=== PATIENT | male | born 1960 | race Caucasian/White ===

== ENCOUNTER 2023-10-31 14:35 | Inpatient (IN) | payer OTHER ==
[~2023-10-31] VITALS: Ht 167.6 cm; Wt 101.2 kg
[~2023-10-31 14:35] MED LIST: VICODIN 5-5001 EACH PO
[2023-10-31] MEDS ORDERED: SODIUM CHLORIDE 0.9% 1,000 ML IV ONE (14:45)
[2023-10-31] MEDS ORDERED: ondansetron HCL 4 MG/2 ML VIAL IV ONE ×2 (14:45→15:45)
[2023-10-31] MEDS ORDERED: HYDROmorphone HCL 1 MG/ML SYR IV PRN ×2 (14:45→18:00)
[2023-10-31] MEDS ORDERED: ADULT LOW DOSE81 MG PO (14:46)
[2023-10-31] MEDS ORDERED: LIPITOR10 MG PO (14:47)
[2023-10-31] MEDS ORDERED: COREG6.25 MG PO (14:47)
[2023-10-31 14:48] LABS: BILIRUBIN, URINE NEGATIVE (negative); BLOOD/HGB, URINE TRACE-I (Negative); KETONE, URINE TRACE (Negative); LEUK ESTERASE, URINE NEGATIVE (negative); NITRITE, URINE NEGATIVE (negative); PH, URINE 6.5 (5-7)
[2023-10-31] MEDS ORDERED: METFORMIN HCL500 M1 PO (14:48)
[2023-10-31 14:58] LABS: HEMOGLOBIN 14.8 g/dL (12.0-18.0)
[2023-10-31 14:59] LABS: BACTERIA, URINE NONE SEEN /hpf (negative); CASTS, URINE NONE SEEN \\lpf; COLLECTION TYPE, URINE CLEAN CATCH; CRYSTALS, URINE NONE SEEN (0-1+); EPITHELIAL CELLS, URINE 0 /lpf (0-1+); RED BLOOD CELLS, URINE 0-1 /hpf (0-5); REFLEX CULTURE, URINE No (No); WHITE BLOOD CELLS, URINE 0-1 /HPF (0-5)
[2023-10-31 15:00] LABS: BASOPHILS 0.5 % (0-2); EOSINOPHILS 0.2 % (0-6); HEMATOCRIT 45.6 % (35.0-50.0); LYMPHOCYTES 13.5 % (24-44); MCH 27.1 (27-36); MCHC 32.5 g/dl (30-36); MCV 83.3 fl (81-99); MONOCYTES 6.7 % (0-12); NEUTROPHILS 79.1 % (39-80); PLATELET COUNT 164 K/uL (140-440); RBC 5.47 M/ul (4.3-5.7); RDW 14.2 (10.5-15.0)
[2023-10-31 15:11] LABS: ALBUMIN 3.8 g/dL (3.4-5.0); ALBUMIN/GLOBULIN RATIO 0.93 (1.1-2.4); BUN/CREATININE RATIO 11.95 (6.0-28.6); CALCIUM 9.1 mg/dL (8.5-10.1); CREATININE, SERUM 0.92 mg/dL (0.70-1.30); PROTEIN, TOTAL 7.9 g/dL (6.4-8.2)
[2023-10-31] MEDS ORDERED: droPERidol 5 MG/2 ML VIAL IV ONE (16:15)
[2023-10-31] MEDS ORDERED: ENOXAPARIN SODIUM 40 MG/0.4 ML SYR SUB-Q SCH (17:34)
[2023-10-31] MEDS ORDERED: PANTOPRAZOLE SODIUM 40 MG/10 ML VIAL IV SCH (17:35)
--- NOTE | 2023-10-31 17:48 | NUR ---
PT TO FLOOR FROM ER VIA STRETCHER. REPORT RECEIVED FROM ER NURSE. PT AWAKE AND ALERT. PT HAS WRIST AND ANKLE RESTRAINTS ON WITH 2 GUARDS AT BEDSIDE. PT PLEASANT AND COOPERATIVE.
[2023-10-31] MEDS ORDERED: ondansetron HCL 4 MG/2 ML VIAL IV PRN (18:00)
[2023-10-31] MEDS ORDERED: GLUCAGON,HUMAN RECOMBINANT 1 MG/ML VIAL SUB-Q PRN (18:00)
[2023-10-31] MEDS ORDERED: ACETAMINOPHEN 325 MG TAB PO PRN (18:00)
[2023-10-31] MEDS ORDERED: DEXTROSE 5% 1,000 ML IV PRN (18:00)
[2023-10-31] MEDS ORDERED: DEXTROSE 50% 50 ML SYR IV PRN ×2 (18:00)
[2023-10-31] MEDS ORDERED: SODIUM CHLORIDE 0.9% 1,000 ML IV SCH (18:00)
[2023-10-31] MEDS ORDERED: IBLOOD GLUCOSE TEST STRIP 1 EA TEST XX PRN (18:00)
[2023-10-31] MEDS ORDERED: PROCHLORPERAZINE EDISYLATE 10 MG/2 ML VIAL IV PRN (18:00)
[2023-10-31 18:15] VITALS: BP 123/65
--- NOTE | 2023-10-31 18:49 | NUR ---
PT RESTING IN BED, RESPIRATIONS EVEN AND UNLABORED. PT STATES PAIN IS 2/10 AND THAT HE IS COMFORTABLE AT THIS TIME. STATES HE IS ONLY SLIGHTLY NAUSEOUS AND THAT IT IS TOLERABLE AT THIS TIME. CALL LIGHT WITHIN REACH.
--- NOTE | 2023-10-31 19:37 | NUR ---
Report received from day RN. Patient laying in bed on his back with [facility] officers in room. Patient has no c/o pain or discomfort at this time. Call light within reach.
[2023-10-31 19:58] VITALS: BP 121/69
--- NOTE | 2023-10-31 20:00 | NUR ---
Assessment completed. Patient resting in bed. No c/o pain or discomfort at this time. Call light within reach.
[2023-10-31 20:42] VITALS: BP 121/69
[2023-10-31] MEDS ORDERED: MELATONIN 3 MG TAB PO PRN (21:00)
[2023-10-31] MEDS ORDERED: carvediloL 6.25 MG TAB PO SCH (21:33)
[2023-10-31 21:57] VITALS: BP 127/74
[2023-10-31] MEDS ORDERED: carvediloL 6.25 MG TAB PO ONE (22:00)
--- NOTE | 2023-10-31 22:05 | NUR ---
New orders for Coreg received, medication administered with small sip of water. No c/o nausea or pain at this time. Call light within reach.
[2023-11-01] VITALS (10 sets, daily range): BP systolic 127–143; BP diastolic 50–74
--- NOTE | 2023-11-01 00:15 | NUR ---
PATIENT RESTING IN BED LAYING ON BACK. APPEARS TO BE SLEEPING. RESPIRATIONS CONFIRMED EVEN AND UNLABORED. CALL LIGHT WITHIN REACH.
[2023-11-01] MEDS ORDERED: IBLOOD GLUCOSE TEST STRIP 1 EA TEST VI SCH ×2 (02:00→17:00)
--- NOTE | 2023-11-01 02:03 | NUR ---
Patient resting in bed laying on back. BS checked. VSS. Patient is on 1L O2 via NC. No c/o pain at this time. Patient c/o mild abd discomfort. No reports of nausea. ABD tender and distended. Voided sufficient quanities. Call light within reach.
--- NOTE | 2023-11-01 04:16 | NUR ---
Patient is resting in bed. Respirations confirmed, even and unlabored. Call light within reach.
[2023-11-01 05:44] LABS: BASOPHILS 0.6 % (0-2); EOSINOPHILS 0.4 % (0-6); HEMATOCRIT 40.1 % (35.0-50.0); HEMOGLOBIN 13.2 g/dL (12.0-18.0); LYMPHOCYTES 17.8 % (24-44); MCH 27.5 (27-36); MCHC 32.8 g/dl (30-36); MCV 83.9 fl (81-99); MONOCYTES 8.7 % (0-12); NEUTROPHILS 72.5 % (39-80); PLATELET COUNT 143 K/uL (140-440); RBC 4.78 M/ul (4.3-5.7)
[2023-11-01 06:24] LABS: ALBUMIN/GLOBULIN RATIO 0.94 (1.1-2.4); ANION GAP 14.6 (7-21); BUN/CREATININE RATIO 16.92 (6.0-28.6); CALCIUM 8.2 mg/dL (8.5-10.1); CREATININE, SERUM 0.65 mg/dL (0.70-1.30); POTASSIUM 4.6 mmol/L (3.5-5.1); PROTEIN, TOTAL 6.2 g/dL (6.4-8.2)
--- NOTE | 2023-11-01 07:27 | NUR ---
REPORT RECEIVED FROM [facility] ASSOCIATE PROFESSOR OF ART RN. PT AWAKE AND ALERT, NO REQUESTS AT THIS TIME, STATES HE IS FEELING BETTER THIS MORNING. IS GIVEN AND TEACHING DONE. PT HAS WRIST AND ANKLE RESTRAINTS ON, GUARDS AT BEDSIDE.
[2023-11-01] MEDS ORDERED: BACLOFEN10 MG PO (07:37)
--- NOTE | 2023-11-01 07:37 | NUR ---
MED REC COMPLETE
[2023-11-01] MEDS ORDERED: INSULIN LISPRO 100 UNIT/ML ML SUB-Q SCH (08:00)
--- NOTE | 2023-11-01 08:11 | NUR ---
UR CLINICAL REVIEW 2 [place] RULE FOR [facility] IP 10/31/23 @ 3706 YES ORDERS MATCH NO AUTH REQUIRED DISCHARGE TO [facility] WHEN STABLE.
--- NOTE | 2023-11-01 08:17 | NUR ---
O2 SPOT CHECK 99% ON 1L. PATIENT IS NOW ON ROOM AIR.
--- NOTE | 2023-11-01 08:51 | NUR ---
ASSESSMENT COMPLETE AND MORNING MEDICATIONS GIVEN. PT STATES THAT HE IS FEELING MUCH BETTER OVERALL. PT RATES ABD "DISCOMFORT" AT A 1/10. PT C/O MAURER THIS MORNING, RATES AT 2-3/10 AND STATES THAT IT IS TOLERABLE AT THIS TIME. NO REQUESTS AT THIS TIME.
[2023-11-01] MEDS ORDERED: ASPIRIN 81 MG TABEC PO SCH (09:00)
[2023-11-01] MEDS ORDERED: carvediloL 6.25 MG TAB PO SCH (09:00)
[2023-11-01] MEDS ORDERED: ATORVASTATIN 10 MG TAB PO SCH (09:00)
--- NOTE | 2023-11-01 09:28 | NUR ---
PATIENT IN INCARCERATED AT [facility] AND WILL RETURN HOME WHEN STABLE. PATIENT INDEPENDENT IN THE ROOM WITH ASSIST FROM GUARDS IF NEEDED.
--- NOTE | 2023-11-01 09:56 | NUR ---
PT UP TO VOID, TOLERATED WELL.
--- NOTE | 2023-11-01 10:54 | NUR ---
MEDICATION GIVEN FOR HEADACHE PAIN 11/12. WILL CONTINUE TO MONITOR. PT IS DRINKING WATER AND EATING JELLO. DENIES INCREASED ABD PAIN AND IS TOLERATING LIQUIDS WILL AT THIS TIME.
[2023-11-01] MEDS ORDERED: PHARMACY RENAL DOSE ADJUSTMENT 1 DOSE MISC PO SCH (12:00)
--- NOTE | 2023-11-01 12:00 | NUR ---
PT RESTING IN BED, STATES HEADACHE IS ALMOST GONE. RATES PAIN /10. NO REQUESTS AT THIS TIME.
--- NOTE | 2023-11-01 12:00 | NUR ---
ROUNDS. PT RECEIVING NURSING CARE. DID NOT INTERRUPT. PROVIDED PRAYER.
--- NOTE | 2023-11-01 14:23 | NUR ---
PT AWAKE AND ALERT WATCHING TV. GUARDS AT BEDSIDE. NO REQUESTS OR COMPLAINTS AT THIS TIME.
--- NOTE | 2023-11-01 17:07 | NUR ---
PT'S BLOOD GLUCOSE 60, CARBOHYDRATE SNACK GIVEN, WILL RECHECK. PT DENNIES SYMPTOMS OF HYPOGLYCEMIA, WILL CONTINUE TO MONITOR.
--- NOTE | 2023-11-01 17:52 | NUR ---
pt's blood glucose in the 80s.
--- NOTE | 2023-11-01 18:22 | NUR ---
PT RESTING IN BED, NO COMPLAINTS OR REQUESTS AT THIS TIME. EDUCATION DONE REGARDING S/S AND TREATMENT OF HYPOGLYCEMIA. PT STATES UNDERSTANDING. WRISTS AND ANKLES WITH RESTRAINTS INTACT AND GUARDS AT BEDSIDE. PT ALERT, AWAKE, PLEASANT, AND COOPERATIVE. STATES HE IS CONTINUING TO IMPROVE.
--- NOTE | 2023-11-01 19:20 | NUR ---
Report received from day KAREN Mendiola. Patient resting in bed. Emptied urinal. Denies any pain or discomfort at this time. Call light within reach.
--- NOTE | 2023-11-01 21:41 | NUR ---
PT WITH BS 61 AT HS, FLUID SNACK GIVEN, RECHECK AND 94. WILL RECHECK IN 1 HOUR AND NOTIFT MD IF NEEDED. PT ASYMPTOMATIC
--- NOTE | 2023-11-01 23:11 | NUR ---
RECHECKED PT BS. 144. WILL RECHECK AT 0200 VS. PT HAS BEEN ASYMPTOMATIC
--- NOTE | 2023-11-02 00:33 | NUR ---
Patient resting in bed. Respirations even and unlabored. Denies any pain or discomfort at this time. No s/sx of hypoglycemia at this time. Call light within reach.
--- NOTE | 2023-11-02 03:05 | NUR ---
Patient restin in bed. Respirations even and unlabored. Denies pain or discomfort at this time. Call light within reach.
[2023-11-02 05:31] LABS: BASOPHILS 1.2 % (0-2); EOSINOPHILS 2.5 % (0-6); HEMATOCRIT 36.1 % (35.0-50.0); HEMOGLOBIN 11.9 g/dL (12.0-18.0); LYMPHOCYTES 29.4 % (24-44); MCH 27.4 (27-36); MCHC 32.9 g/dl (30-36); MCV 83.2 fl (81-99); NEUTROPHILS 56.9 % (39-80); PLATELET COUNT 125 K/uL (140-440); RBC 4.34 M/ul (4.3-5.7); RDW 13.8 (10.5-15.0)
[2023-11-02 05:32] VITALS: BP 113/62
--- NOTE | 2023-11-02 05:43 | NUR ---
PATIENT RESTING IN BED VSS. NO C/O PAIN OR DISCOMFORT. DENIES ANY NAUSEA. BS RECHECKED 99MG/DL. CALL LIGHT WITHIN REACH.
[2023-11-02 05:44] LABS: ALBUMIN 2.7 g/dL (3.4-5.0); ALBUMIN/GLOBULIN RATIO 0.79 (1.1-2.4); ANION GAP 11.8 (7-21); BILIRUBIN, TOTAL 0.9 ng/dL (0.2-1.0); BUN/CREATININE RATIO 7.31 (6.0-28.6); CALCIUM 8.1 mg/dL (8.5-10.1); CREATININE, SERUM 0.82 mg/dL (0.70-1.30); POTASSIUM 3.8 mmol/L (3.5-5.1); PROTEIN, TOTAL 6.1 g/dL (6.4-8.2)
[2023-11-02] MEDS ORDERED: HYDROCODONE/ACETA 5/325 TAB PO PRN (09:15)
[2023-11-02 09:37] VITALS: BP 139/64
[2023-11-02 09:50] VITALS: BP 139/64
--- NOTE | 2023-11-02 10:03 | NUR ---
Called [facility] and notified patient will be discharged today, likely within the hour.
--- NOTE | 2023-11-02 10:13 | NUR ---
dc summary, DC orders and [facility] form faxed to [facility].
--- NOTE | 2023-11-02 10:31 | NUR ---
[facility]. ALL QUESTIONS ANSWERED.
== END 2023-11-02 10:38 | disposition home or self-care (01) | DRG 440 ==
LOC: ED 14:35 → MS 17:36
PROVIDERS: Emergency Medicine; ADMIT Internal Medicine; ATTEND Internal Medicine
DX: K85.90 Acute pancreatitis without necrosis or infection, unspecified (principal); E11.9 Type 2 diabetes mellitus without complications; I10 Essential (primary) hypertension; E78.5 Hyperlipidemia, unspecified; Z98.890 Other specified postprocedural states; Z79.82 Long term (current) use of aspirin; Z79.84 Long term (current) use of oral hypoglycemic drugs; Z79.899 Other long term (current) drug therapy
CPT/HCPCS: 36415; 74177; 80053; 81001; 83036; 83690; 85025; A9270; C9113; J1170; J1650; J1790; J2405; J7030; Q9967